=== PATIENT | male | born 1975 | race Caucasian/White ===

== ENCOUNTER 2018-04-20 12:25 | Emergency (ER) | payer SELFPAY ==
[~2018-04-20] VITALS: Ht 177.8 cm; Wt 91.8 kg
[2018-04-20] MEDS ORDERED: LEVOTHYROXIN100 MCG PO (12:38)
[2018-04-20] MEDS ORDERED: LISINOPRIL20 MG PO (12:39)
[2018-04-20] MEDS ORDERED: NEXIUM2.5 MG (12:40)
[2018-04-20] MEDS ORDERED: FLUOXETINE20 MG PO (12:42)
[2018-04-20 13:20] LABS: INFLUENZA A NONE DETECTED (NONE DETECT)
[2018-04-20 13:21] LABS: INFLUENZA B NONE DETECTED (NONE DETECT)
[2018-04-20] MEDS ORDERED: TORADOL PO (13:29)
[2018-04-20] MEDS ORDERED: ONDANSETRON4 MG PO (13:29)
[2018-04-20] MEDS ORDERED: ZITHROMAX250 MG PO (13:29)
[2018-04-20 13:40] VITALS: BP 112/71
== END 2018-04-20 13:40 | disposition home or self-care (01) | DRG 866 ==
LOC: ED 12:25
PROVIDERS: Emergency Medicine
DX: B34.9 Viral infection, unspecified (principal); R50.9 Fever, unspecified; R19.7 Diarrhea, unspecified; R10.13 Epigastric pain; R11.2 Nausea with vomiting, unspecified; R05 Cough

== ENCOUNTER 2018-04-27 18:45 | Observation (INO) | payer SELFPAY ==
[~2018-04-27] VITALS: Ht 177.8 cm; Wt 89.0 kg
[~2018-04-27 18:45] MED LIST: FLUOXETINE20 MG PO; LEVOTHYROXIN100 MCG PO; LISINOPRIL20 MG PO; NEXIUM2.5 MG PO; ONDANSETRON4 MG PO; TORADOL PO; ZITHROMAX250 MG PO
[2018-04-27 19:44] LABS: HEMATOCRIT 47.2 % (39.0-50.0); HEMOGLOBIN 16.4 g/dl (14.0-18.0); IMMATURE GRANULOCYTES 0.3 % (0.0-5.0); MEAN CELL VOLUME 89.2 fL CALC (80.0-100.0); MEAN CORPUSCULAR HGB CONC 34.7 g/L CALC (32.0-36.0); NEUT# 5.06 thou/uL (1.82-7.42); RED BLOOD COUNT 5.29 mill/uL (4.70-6.10); RED CELL DISTRI WIDTH 11.9 % (11.5-15.5)
[2018-04-27 19:58] LABS: ALBUMIN 4.3 g/dL (3.2-5.0); ALKALINE PHOSPHATASE 85 u/l (38-126); ANION GAP 12 (6-22 (CALC)); BILIRUBIN, TOTAL 0.5 mg/dL (0.0-1.4); BUN 19 mg/dL (9-20); BUN/CREATININE RATIO 11 (12-20 (CALC)); CARBON DIOXIDE 27 mmol/l (22-30); CHLORIDE 104 mmol/l (95-108); CREATININE 1.8 mg/dL (0.7-1.3); GFR 41 ML/MIN (>=60 (CALC)); GFR FOR AFR.AMER. 50 ML/MIN (>=60 (CALC)); POTASSIUM 3.8 mmol/l (3.5-5.1); SGOT/AST 32 u/l (17-59); SODIUM 139 mmol/l (137-146); TOTAL PROTEIN 7.7 g/dL (6.3-8.2)
[2018-04-27 20:11] LABS: MYOGLOBIN 39 ng/mL (0 - 121)
[2018-04-27 21:21] LABS: URINE BILIRUBIN - DIPSTICK NEGATIVE (NEGATIVE); URINE BLOOD DIPSTICK NEGATIVE (NEGATIVE); URINE COLOR YELLOW; URINE GLUCOSE - DIPSTICK NEGATIVE (NEGATIVE); URINE KETONE NEGATIVE (NEGATIVE); URINE LEUK ESTERASE NEGATIVE (NEGATIVE); URINE NITRITE - DIPSTICK NEGATIVE (Negative); URINE PROTEIN - DIPSTICK NEGATIVE (NEG-TRACE); URINE UROBILINOGEN - DIPSTICK 0.2 E.U./dL (0.2)
[2018-04-27 21:22] LABS: URINE CLARITY CLEAR
[2018-04-27 21:23] LABS: BARBITURATES NEGATIVE (NEGATIVE); COCAINE NEGATIVE (NEGATIVE); METHADONE NEGATIVE (NEGATIVE); OXCYCODONE NEGATIVE (NEGATIVE); TETRAHYDROCANNABIONOL NEGATIVE (NEGATIVE); TRICYLIC ANTIDEPRESSANTS NEGATIVE (NEGATIVE)
[2018-04-27 23:10] VITALS: BP 112/74
[2018-04-28] VITALS (8 sets, daily range): BP systolic 98–135; BP diastolic 62–91
[2018-04-29] MEDS ORDERED: FLUOXETINE20 MG PO (17:24)
== END 2018-04-28 13:39 | disposition home or self-care (01) | DRG 645 ==
LOC: ED 18:45 → ED-I 21:30 → ED 22:49 → MS2 22:50
PROVIDERS: Emergency Medicine; ADMIT Internal Medicine; ATTEND Internal Medicine
PROC: 3E02340 Introduction of Influenza Vaccine into Muscle, Percutaneous Approach (ICD-10-PCS; principal; 2018-04-28)
PROC: 3E0234Z Introduction of Serum, Toxoid and Vaccine into Muscle, Percutaneous Approach (ICD-10-PCS; 2018-04-28)
DX: E03.9 Hypothyroidism, unspecified (principal); I95.2 Hypotension due to drugs; T46.4X5A Adverse effect of angiotensin-converting-enzyme inhibitors, initial encounter; I10 Essential (primary) hypertension; F41.9 Anxiety disorder, unspecified; E78.5 Hyperlipidemia, unspecified; T38.1X6A Underdosing of thyroid hormones and substitutes, initial encounter; Z91.138 Patient's unintentional underdosing of medication regimen for other reason; Z23 Encounter for immunization
CPT/HCPCS: G0378

== ENCOUNTER 2018-04-29 15:46 | Emergency (ER) | payer SELFPAY ==
[~2018-04-29] VITALS: Ht 177.8 cm; Wt 89.4 kg
[2018-04-29] MEDS ORDERED: FLUOXETINE20 MG PO (17:24)
[2018-04-29 17:25] LABS: BARBITURATES NEGATIVE (NEGATIVE); COCAINE NEGATIVE (NEGATIVE); METHADONE NEGATIVE (NEGATIVE); OXCYCODONE NEGATIVE (NEGATIVE); TETRAHYDROCANNABIONOL NEGATIVE (NEGATIVE); TRICYLIC ANTIDEPRESSANTS NEGATIVE (NEGATIVE)
[2018-04-29 17:26] LABS: URINE BILIRUBIN - DIPSTICK NEGATIVE (NEGATIVE); URINE BLOOD DIPSTICK TRACE-INTACT (NEGATIVE); URINE COLOR YELLOW; URINE GLUCOSE - DIPSTICK NEGATIVE (NEGATIVE); URINE KETONE 15 mg/dL (NEGATIVE); URINE LEUK ESTERASE NEGATIVE (NEGATIVE); URINE NITRITE - DIPSTICK NEGATIVE (Negative); URINE PROTEIN - DIPSTICK NEGATIVE (NEG-TRACE); URINE UROBILINOGEN - DIPSTICK 0.2 E.U./dL (0.2)
[2018-04-29 17:27] LABS: URINE CLARITY CLEAR
[2018-04-29 17:36] VITALS: BP 133/88
== END 2018-04-29 17:35 | disposition home or self-care (01) | DRG 880 ==
LOC: ED 15:46
DX: F41.9 Anxiety disorder, unspecified (principal); R07.9 Chest pain, unspecified

== ENCOUNTER 2024-02-22 20:48 | Emergency (ER) | payer SELFPAY ==
[~2024-02-22] VITALS: Ht 177.8 cm; Wt 97.0 kg
[2024-02-22] MEDS ORDERED: Diph, Acellular Pertussis, Tet 0.5 ML/VIAL (Tdap) SDV IM ONE (21:10)
[2024-02-22 21:59] VITALS: BP 131/89
== END 2024-02-22 22:06 | disposition home or self-care (01) | DRG 605 ==
LOC: ED 20:48
DX: S60.221A Contusion of right hand, initial encounter (principal); S60.511A Abrasion of right hand, initial encounter; I10 Essential (primary) hypertension; E03.9 Hypothyroidism, unspecified; F41.9 Anxiety disorder, unspecified; W22.09XA Striking against other stationary object, initial encounter; Y93.89 Activity, other specified; Y92.009 Unspecified place in unspecified non-institutional (private) residence as the place of occurrence of the external cause

== ENCOUNTER 2024-05-06 20:34 | Emergency (ER) | payer MEDICAID ==
[~2024-05-06] VITALS: Ht 177.8 cm; Wt 85.0 kg
[2024-05-06 20:52] VITALS: BP 150/106
[2024-05-06 20:53] VITALS: BP 175/115
[2024-05-06 21:00] VITALS: BP 159/102
[2024-05-06] MEDS ORDERED: KETOROLAC TROMETHAMINE 30 MG/ML SDV IM ONE (21:10)
[2024-05-06 21:15] VITALS: BP 161/106
[2024-05-06] MEDS ORDERED: DEXAMETHASONE SOD. PHOSPHATE 10 MG/ML VIAL IM ONE (21:15)
[2024-05-06] MEDS ORDERED: HYDROcodone 5 MG/Acetaminophen 325 MG/COMBO PO ONE (21:15)
[2024-05-06] MEDS ORDERED: CELEBREX200 M1 PO (21:29)
[2024-05-06] MEDS ORDERED: GABAPENTIN400 MG PO (21:30)
[2024-05-06] MEDS ORDERED: TIZANIDINE HCL2 MG PO (21:31)
== END 2024-05-06 21:48 | disposition home or self-care (01) ==
LOC: ED 20:34
DX: M54.50 Low back pain, unspecified (principal); G89.29 Other chronic pain; I10 Essential (primary) hypertension; F41.9 Anxiety disorder, unspecified; E03.9 Hypothyroidism, unspecified

== ENCOUNTER 2024-07-03 10:16 | Emergency (ER) | payer MEDICAID ==
[~2024-07-03] VITALS: Ht 177.8 cm; Wt 98.0 kg
[~2024-07-03 10:16] MED LIST changes: +CELEBREX200 M1 PO; +GABAPENTIN400 MG PO; +TIZANIDINE HCL2 MG PO
[2024-07-03 10:37] VITALS: BP 147/100
[2024-07-03 10:45] VITALS: BP 143/96
[2024-07-03] MEDS ORDERED: KETOROLAC TROMETHAMINE 30 MG/ML SDV IM ONE (10:50)
[2024-07-03] MEDS ORDERED: BACLOFEN10 MG PO (12:33)
[2024-07-03] MEDS ORDERED: NAPROXEN500 MG PO (12:33)
[2024-07-03 12:41] VITALS: BP 143/96
== END 2024-07-03 12:43 | disposition home or self-care (01) ==
LOC: ED 10:16
DX: S39.012A Strain of muscle, fascia and tendon of lower back, initial encounter (principal); I10 Essential (primary) hypertension; E03.9 Hypothyroidism, unspecified; X58.XXXA Exposure to other specified factors, initial encounter

== ENCOUNTER 2024-08-17 08:21 | Day surgery (SDC) | payer MEDICAID ==
[~2024-08-17] VITALS: Ht 177.8 cm; Wt 97.5 kg
[~2024-08-17 08:21] MED LIST changes: +BACLOFEN10 MG PO; +DULOXETINE HCL60 MG PO; +GABAPENTIN PO; +INDOMETHACIN50 MG PO; +LEVOTHYROXINE PO; +LISINOPRIL PO; +NAPROXEN500 MG PO; +OMEPRAZOLE20 M4 PO; +ROSUVASTATIN CA20 MG PO; +TIZANIDINE4 MG PO; +TRAMADOL HYDROC50 M1 PO
[2024-08-17] MEDS ORDERED: FAMOTIDINE 10MG/ML 2ML SDV IV ONE (08:23)
[2024-08-17] MEDS ORDERED: LACTATED RINGER'S 1,000 ML IV ONE (08:23)
[2024-08-17] MEDS ORDERED: LIDOCAINE HCL 2% 2ML SDV IV ONE (10:31)
[2024-08-17] MEDS ORDERED: PROPOFOL 200 MG/20 ML VIAL IV ONE (10:31)
[2024-08-17 10:55] VITALS: BP 117/68
== END 2024-08-17 10:42 | disposition home or self-care (01) ==
LOC: ENDO 08:21 → ORM 10:15 → ENDO 10:25
PROVIDERS: ATTEND Surgery
DX: Z12.11 Encounter for screening for malignant neoplasm of colon (principal); K64.8 Other hemorrhoids; I10 Essential (primary) hypertension; E03.9 Hypothyroidism, unspecified; K31.84 Gastroparesis; Z87.19 Personal history of other diseases of the digestive system; Z86.0100 Personal history of colon polyps, unspecified